=== PATIENT | male | born 1970 | race American Indian/Alaskan Native ===

== ENCOUNTER 2018-05-12 09:37 | Emergency (ER) | payer BC ==
[2018-05-12 09:37] VITALS: BMI 34.4
[2018-05-12 09:44] VITALS: RESP 18; TEMP 98.2
--- NOTE | 2018-05-12 10:08 | ED PDOC ---
Arrival/HPI - General Chief Complaint: Chest Pain Time Seen by Provider: 05/12/18 09:46 Historian: Patient - History of Present Illness Narrative History of Present Illness (Text): 05/12/18 09:54 47yo morbidly obese male with pmhx of hypertension present with complaint of mild retrosternal chest pain x 2days. States pain was worse yesterday and improved today. Describes pain as constant, worse with movement. He did not take any medication. 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 States pain is constant and worse with movement. Describes pain as achy/crampy. Denies saddle anesthesia, focal weakness, ripping/tearing upper back pain, nausea, vomiting, diarrhea, dizziness, SOB, diaphoresis, abdominal pain, visual changes, urinary/fecal incontinence, any other complaint. Past Medical History - Provider Review Nursing Documentation Reviewed: Yes - Infectious Disease Hx of Infectious Diseases: None - Tetanus Immunization Tetanus Immunization: Up to Date - Past Medical History Past Medical History: No Previous - Cardiac Hx Cardiac Disorders: Yes Hx Hypertension: Yes - Pulmonary Hx Asthma: Yes - Neurological Hx Neurological Disorder: Yes Hx Transient Ischemic Attacks (TIA): Yes - HEENT Hx HEENT Disorder: No - Renal Hx Renal Disorder: No - Endocrine/Metabolic Hx Hypothyroidism: Yes - Hematological/Oncological Hx Blood Disorders: No - Integumentary Hx Dermatological Disorder: No - Musculoskeletal/Rheumatological Hx Musculoskeletal Disorders: No - Gastrointestinal Hx Gastroesophageal Reflux: Yes - Genitourinary/Gynecological Hx Genitourinary Disorders: No - Psychiatric Hx Psychophysiologic Disorder: No Hx Depression: No Hx Emotional Abuse: No Hx Physical Abuse: No Hx Substance Use: No - Surgical History Hx Inguinal Hernia Repair: Yes (x2) - Anesthesia Hx Anesthesia: Yes Hx Anesthesia Reactions: No Hx Malignant Hyperthermia: No - Suicidal Assessment Feels Threatened In Home Enviroment: No Family/Social History - Physician Review Nursing Documentation Reviewed: Yes Family/Social History: Unknown Family HX Smoking Status: Light Smoker < 10 Cigarettes Daily Hx Alcohol Use: Yes (social) Hx Substance Use: No Hx Substance Use Treatment: No Allergies/Home Meds Allergies/Adverse Reactions: Allergies No Known Allergies Allergy (Verified 08/18/16 11:07) Home Medications: Home Meds Medication Instructions Recorded Confirmed Lisinopril [Zestril] 20 mg PO DAILY 08/18/16 05/12/18 Omeprazole 40 mg PO DAILY 08/18/16 05/12/18 Levothyroxine [Synthroid] 1 tab PO DAILY 05/12/18 05/12/18 Review of Systems - Physician Review All systems were reviewed & negative as marked: Yes - Review of Systems Constitutional: Normal Eyes: Normal ENT: Normal Respiratory: Normal Cardiovascular: Chest Pain. absent: Palpitations, Edema, Calf Pain, SALCEDO Gastrointestinal: Normal Genitourinary Male: Normal Musculoskeletal: Back Pain Skin: Normal Neurological: Normal Endocrine: Normal Hemo/Lymphatic: Normal Psychiatric: Normal Physical Exam Vital Signs Reviewed: Yes Vital Signs Temp Pulse Pulse Resp BP BP Pulse Ox 05/12/18 14:56 70 18 141/98 H 96 05/12/18 10:34 72 144/103 H 05/12/18 09:44 98.2 F 79 18 156/102 H 98 Temperature: Afebrile Blood Pressure: Hypertensive Pulse: Regular Respiratory Rate: Normal Appearance: Positive for: Well-Appearing, Non-Toxic, Comfortable Pain Distress: None Mental Status: Positive for: Alert and Oriented X 3 - Systems Exam Head: Present: Atraumatic, Normocephalic Pupils: Present: PERRL Extroacular Muscles: Present: EOMI Conjunctiva: Present: Normal Mouth: Present: Moist Mucous Membranes Neck: Present: Normal Range of Motion Respiratory/Chest: Present: Clear to Auscultation, Good Air Exchange. No: Respiratory Distress, Accessory Muscle Use, Wheezes, Decreased Breath Sounds, Rales, Retracting, Rhonchi Cardiovascular: Present: Regular Rate and Rhythm, Normal S1, S2. No: Murmurs Abdomen: No: Tenderness, Distention, Peritoneal Signs Back: Present: Midline Tenderness, Paraspinal Tenderness (Diffuse paralumbar tenderness). No: Pain with Leg Raise Upper Extremity: Present: Normal Inspection. No: Cyanosis, Edema Lower Extremity: Present: Normal Inspection. No: Edema Neurological: Present: GCS=15, CN II-XII Intact, Speech Normal Skin: Present: Warm, Dry, Normal Color. No: Rashes Psychiatric: Present: Alert, Oriented x 3, Normal Insight, Normal Concentration Medical Decision Making ED Course and Treatment: 05/12/18 19:27 Pt present with chest pain and back pain. He was hemodynamically stable in ED. His back pain was reproducible. Pt was observed in ED for more than 4hrs. First and second CE was negative EKG NSR with prolonged QT @83bpm. NSTEMI CXR NAD LS xray - DJD . No acute finding He was ambulatory and neurologically intact in ED. His PECARN score was negative All result was DW the pt. He was DC home with Ibuprofen and flexeril for MS pain. Advised to f/u with a Stitch Cleaner. TRT ED for any new or worsening symptoms. - Lab Interpretations Lab Results: 05/12/18 10:30 05/12/18 10:30 Lab Results 05/12/18 13:49: Lactate Dehydrogenase 451, Total Creatine Kinase 205, Troponin I < 0.01 05/12/18 13:49: Urine Opiates Screen Negative, Urine Methadone Screen Negative, Ur Barbiturates Screen Negative, Ur Phencyclidine Scrn Negative, Ur Amphetamines Screen Negative, U Benzodiazepines Scrn Negative, U Oth Cocaine Metabols Negative, U Cannabinoids Screen Negative 05/12/18 11:20: Urine Color Yellow, Urine Appearance Clear, Urine pH 6.0, Ur Specific [place] <= 1.005, Urine Protein Negative, Urine Glucose (UA) Negative, Urine Ketones Negative, Urine Blood Small H, Urine Nitrate Negative, Urine Bilirubin Negative, Urine Urobilinogen 0.2, Ur Leukocyte Esterase Negative, Urine RBC 2 - 5, Urine WBC 0 - 2, Ur Epithelial Cells None, Urine Bacteria Few 05/12/18 10:30: Sodium 140, Potassium 4.1, Chloride 106, Carbon Dioxide 24, Anion Gap 14, BUN 13, Creatinine 0.7 L, Est GFR ( Amer) > 60, Est GFR ( Non-Af Amer) > 60, Random Glucose 97, Calcium 9.4, Magnesium 2.1, Total Bilirubin 0.7, AST 41, ALT 72 H, Alkaline Phosphatase 66, Lactate Dehydrogenase 447, Total Creatine Kinase 229, Troponin I < 0.01, Total Protein 7.5, Albumin 4.4, Globulin 3.1, Albumin/Globulin Ratio 1.4 05/12/18 10:30: PT 10.8, INR 0.94, APTT 31.1 05/12/18 10:30: WBC 8.4, RBC 5.75, Hgb 13.3 L, Hct 40.5 L, MCV 70.4 L, MCH 23.1 L, MCHC 32.8, RDW 14.3, Plt Count 260, MPV 9.6, Gran % 65.5, Lymph % (Auto) 27.1 , Prentiss % (Auto) 5.2, Eos % (Auto) 2.0, Baso % (Auto) 0.2, Gran # 5.52, Lymph # ( Auto) 2.3, Prentiss # (Auto) 0.4, Eos # (Auto) 0.2, Baso # (Auto) 0.02 - RAD Interpretation Radiology Orders: 05/12/18 09:52 CHEST TWO VIEWS (PA/LAT) [RAD] Stat 05/12/18 09:53 LS SPINE WITH OBL > 18 YRS OLD [RAD] Stat - Medication Orders Current Medication Orders: Discontinued Medications Aspirin (Aspirin) 325 mg PO STAT STA Stop: 05/12/18 09:53 Last Admin: 05/12/18 10:17 Dose: 325 mg Oxycodone/Acetaminophen (Percocet 5/325 Mg Tab) 1 tab PO STAT STA Stop: 05/12/18 12:06 Last Admin: 05/12/18 12:45 Dose: 1 tab [facility] Pain Assessment Document 05/12/18 12:45 HI (Rec: 05/12/18 12:46 [place] [email or web address] Pain Reassessment Is this a pain reassessment? No Sleep Is patient sleeping during reassessment? No Presence of Pain Presence of Pain Yes Pain Scale Used Pain Scale Used Numeric Location Pain Location Body Site Back Description Description Intermittent Re-Assess: [facility] Pain Assessment Document 05/12/18 13:45 HI (Rec: 05/12/18 14:58 [place] [email or web address] Pain Reassessment Is this a pain reassessment? Yes Sleep Is patient sleeping during reassessment? No Presence of Pain Presence of Pain No Disposition/Present on Arrival - Present on Arrival Any Indicators Present on Arrival: No History of DVT/PE: No History of Uncontrolled Diabetes: No Urinary Catheter: No History of Decub. Ulcer: No History Surgical Site Infection Following: None - Disposition Have Diagnosis and Disposition been Completed?: Yes Diagnosis: Chest pain, Back pain Disposition: HOME/ ROUTINE Disposition Time: 14:45 Patient Plan: Discharge Condition: STABLE Discharge Instructions (ExitCare): Chest Pain, Chest Pain (ED) Additional Instructions: Follow up with your Doctor/Stitch Cleaner Return to ED for any new or worsening symptoms Prescriptions: Cyclobenzaprine [Cyclobenzaprine HCl] 10 mg PO TID #12 tab Ibuprofen [Motrin Tab] 600 mg PO Q6 #20 tab Referrals: Kari Deleon MD [Primary Care Provider] - Follow up with primary Forms: [employer] ([place] ([place])
[2018-05-12 10:40] LABS: BASO # 0.02 K/mm3 (0.0-2.0); BASO % 0.2 % (0.0-3.0); EOS # 0.2 (0.0-0.7); GRAN # 5.52 (1.4-6.5); GRAN % 65.5 % (50.0-68.0); HEMOGLOBIN 13.3 g/dL (14.0-18.0); LYMPH # 2.3 (1.2-3.4); LYMPH % 27.1 % (22.0-35.0); MEAN CELL VOLUME 70.4 fl (80.0-105.0); MEAN CORPUSCULAR HEMOGLOBIN 23.1 pg (25.0-35.0); MEAN CORPUSCULAR HGB CONC 32.8 g/dl (31.0-37.0); MEAN PLATELET VOLUME 9.6 fl (7.0-11.0); MONO # 0.4 (0.1-0.6); MONO % 5.2 % (1.0-6.0); RBC 5.75 10^6/uL (3.5-6.1); RED CELL DISTRIBUTION WIDTH 14.3 % (11.5-14.5); WHITE BLOOD COUNT 8.4 10^3/ul (4.5-11.0)
[2018-05-12 10:47] LABS: ALB/GLOB RATIO 1.4 (1.1-1.8); ALBUMIN 4.4 g/dL (3.0-4.8); ALT/SGPT 72 U/L (7-56); AST/SGOT 41 U/L (17-59); BLOOD UREA NITROGEN 13 mg/dL (7-21); CALCIUM 9.4 mg/dL (8.4-10.5); GFR AFRICAN-AMERICAN > 60; GFR NON-AFRICAN AMERICAN > 60
[2018-05-12 10:48] LABS: INR 0.94; PARTIAL THROMBOPLASTIN TIME 31.1 Seconds (25.1-36.5); PROTHROMBIN TIME 10.8 SECONDS (9.4-12.5)
[2018-05-12 10:59] LABS: TROPONIN I < 0.01 ng/mL
[2018-05-12 11:35] LABS: URINE APPEARANCE CLEAR (CLEAR); URINE BILIRUBIN NEGATIVE (NEGATIVE); URINE BLOOD SMALL (NEGATIVE); URINE COLOR YELLOW (YELLOW); URINE GLUCOSE (UA) NEGATIVE (NEGATIVE); URINE LEUKOCYTE ESTERASE NEGATIVE Leu/uL (NEGATIVE); URINE PROTEIN NEGATIVE mg/dL (<30 mg/dL); URINE UROBILINOGEN 0.2 E.U./dL (<1 E.U./dL)
[2018-05-12 11:51] LABS: URINE BACTERIA FEW (NEG); URINE WBC 0 - 2 /hpf (0-6)
[2018-05-12] MEDS ORDERED: Oxycodone/Acetaminophen 5/325 mg Tab PO STA (12:05)
--- NOTE | 2018-05-12 12:18 | RAD ---
Date of service: 05/12/2018 HISTORY: chest pain COMPARISON: 09/21/2013 TECHNIQUE: Chest PA and lateral FINDINGS: LUNGS: No active pulmonary disease. PLEURA: No significant pleural effusion identified. No pneumothorax apparent. CARDIOVASCULAR: Normal. OSSEOUS STRUCTURES: No significant abnormalities. VISUALIZED UPPER ABDOMEN: Normal. OTHER FINDINGS: None. IMPRESSION: No active disease.
--- NOTE | 2018-05-12 12:21 | RAD ---
Date of service: 05/12/2018 PROCEDURE: Radiographs of the Lumbar Spine. HISTORY: back pain COMPARISON: No prior. FINDINGS: BONES: Normal alignment. No listhesis. No fracture. DISC SPACES: Mild disc degeneration at L5-S1 OTHER FINDINGS: None. IMPRESSION: Unremarkable radiographs of the lumbar spine.
[2018-05-12 14:22] LABS: TROPONIN I < 0.01 ng/mL
[2018-05-12 14:23] LABS: BARBITURATES, UR NEGATIVE (NEGATIVE); BENZODIAZEPINES, UR NEGATIVE (NEGATIVE); OPIATES, UR NEGATIVE (NEGATIVE); PHENCYCLIDINE, UR NEGATIVE (NEGATIVE)
[2018-05-12 14:56] VITALS: BP 141/98; PULSE 70; O2SAT 96
--- NOTE | 2018-05-12 21:14 | CARD ---
APPROVED REPORT Date of service: 05/12/2018 EKG Measurement Heart [id number] <Conclusion> Normal sinus rhythm Nonspecific T wave abnormality Prolonged QT Abnormal ECG
== END 2018-05-12 14:53 | disposition home or self-care (01) ==
LOC: ED 09:37
DX: M54.5 Low back pain (principal); R07.9 Chest pain, unspecified; E66.01 Morbid (severe) obesity due to excess calories; I10 Essential (primary) hypertension; F17.210 Nicotine dependence, cigarettes, uncomplicated; E03.9 Hypothyroidism, unspecified
CPT/HCPCS: 71046; 72110; 80053; 81001; 82550; 83615; 83735; 84484; 85025; 85610; 85730; 93005; 99284; G0480